=== PATIENT | female | born 1980 | race American Indian/Alaskan Native ===

== ENCOUNTER 2022-04-11 06:54 | Day surgery (SDC) | payer BC ==
[2022-04-08 12:04] LABS: Hematocrit 40.6 % (30.3-42.9); Mean Corpuscular HGB Conc 35 % (30-34); Mean Corpuscular Volume 92 fl (79-97); Platelet Count 239 K/mm3 (140-440); Red Blood Count 4.41 M/mm3 (3.65-5.03); Red Cell Distribution Width 13.2 % (13.2-15.2)
--- NOTE | 2022-04-08 17:14 | History and Physical Report ---
History of Present Illness Date of examination: 04/08/22 History of present illness: Patient has been reassessed/reevaluated. H&P has been reviewed. No interval changes. This is a 41 years old female who presents with menstrual disorder. She complains of heavy bleeding, clotting and fatigue. Menstrual flow lasts 5 days and 7 days. The patient also presents with menstrual disorder. .Patient presently has Mirena in place for treatment. Mirena expires this month. Patient's symptoms when present disrupts her normal daily activities Patient desires definitive treatment Vital Signs: Patient Profile: 41 Years Old Female LMP: 03/14/2022 Height: 63 inches (160.02 cm) Weight: 149 pounds BMI: 26.39 Temp: 97.3 degrees F BP sittin / 70 (right arm) Menstrual History: LMP (date): 03/14/2022 Current Method of Contraception: IUD Date of Last Pap Smear: 02/25/2022 Past History : 2 Term Births: 0 Premature Births: 0 Living Children: 1 Para: 1 Mult. Births: 0 Prev : 0 Prev. attempt? 0 Aborta: 1 Elect. Ab: 0 Spont. Ab: 1 Ectopics: 0 # 1 Delivery date: 05/06/2010 Weeks Gestation: 40.4 Delivery type: Anesthesia type: none Delivery location: [place] [facility] Sex: Female weight: 6-13 Name: Earnest Current Allergies (reviewed today): No known allergies Past Medical History: Anemia Past Surgical History: negative Family History Summary: General Comments - FH: Family History of CVA or Stroke Family History of Hypertension Social History: Patient is single Works for [employer] Smoking History: Patient has never smoked. 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 of genital herpes: yes Hx of STD: HSV Review of Systems General Complains of fatigue. Denies fever, chills, sweats, anorexia, weakness, malaise, weight loss and sleep disorder. Complains of menorrhagia. Denies vaginal discharge, incontinence, dysuria, hematuria, urinary frequency, amenorrhea, abnormal vaginal bleeding, pelvic pain, genital sores, decreased libido, painful periods, painful sex, urinary urgency, hot flashes, vaginal dryness, vaginal itching and vaginal odor. CV Denies chest pains, palpitations, syncope, dyspnea on exertion, orthopnea, PND and peripheral edema. Resp Denies cough, dyspnea at rest, excessive sputum, hemoptysis, wheezing and pleurisy. GI Denies nausea, vomiting, diarrhea, constipation, change in bowel habits, abdominal pain, melena, hematochezia, jaundice, gas/bloating, indigestion/heartburn, dysphagia and odynophagia. Breast Denies left breast lump, right breast lump, nipple discharge, bloody discharge from nipple, breast pain, abnormal mammogram and breast enlargement. Psych Denies depression, anxiety, irritability and mood swings. Past History Past Medical History: other (See HPI) Past Surgical History: Other (See HPI) Social history: full code, other (See HPI) Family history: other (See HPI) Medications and Allergies Allergies Allergy/AdvReac Type Severity Reaction Status Date / Time No Known Allergies Allergy Unverified 04/07/22 18:25 Home Medications Medication Instructions Recorded Confirmed Last Taken Type Iron [Iron 18 MG TAB] 18 mg PO QDAY 04/07/22 04/07/22 Unknown History Multivitamin [Multiple Vitamins] 1 each PO DAILY 04/07/22 04/07/22 Unknown History Review of Systems Constitutional: other (See HPI) Exam - Physical Exam Narrative exam: HEENT: normocephalic, no lesions or deformities Skin no ulcers, xanthomas Chest: respiratory effort normal, clear to auscultation CV: regular, normal S1-S2, no murmur, no rub, no gallop Abdomen: soft, non-tender, no masses, bowel sounds normal increased hair growth Neuro: no gross anomalities Extremities: no clubbing, cyanosis, or edema 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 No evidence of cystocele or rectocele. Cervix: No lesions; no cervical motion tenderness short IUD string seen Uterus: enlarged uterus 8 - 10 weeks size Adnexae: no masses or tenderness Rectovaginal: No lesions seen - Constitutional Vitals: Temp Pulse Resp BP Pulse Ox 98.2 F 72 16 110/71 100 04/08/22 11:40 04/08/22 11:40 04/08/22 11:40 04/08/22 11:40 04/08/22 11:40 Results - Labs CBC & Chem 7: 04/08/22 06:00 Labs: Abnormal lab results 04/08/22 Range/Units 06:00 MCHC 35 H (30-34) % Assessment and Plan - Patient Problems (1) Menorrhagia Current Visit: No Status: Acute Qualifiers: Menorrhagia type: with regular cycle Qualified Code(s): N92.0 - Excessive and frequent menstruation with regular cycle Plan to address problem: Patient's symptoms when present disrupts her normal daily activities Patient desires definitive treatment Conservative therapies have failed. Patient desires definitive treatment Patient desires least invasive procedure Patient desires endometrial ablation. Discussed risks and benefits of procedure. Informed endometrial ablation does not treat dymenorrhea or myomas. Patient does not desire future fertility Discussed risk of surgery including infection, bleeding and risk of perforating her uterus. Discuused postoperative symptom of vaginal duscharge and uterine cramping. Questions answered. Patient understands and desires to proceed
[2022-04-11] MEDS ORDERED: LACTATED RINGERS 1,000 ML ONE (07:18)
--- NOTE | 2022-04-11 08:08 | Anesthesia Day of Surgery ---
Anesthesia Day of Surgery - Day of Surgery Patient Examined: Yes Patient H&P Reviewed: Yes Patient is NPO: Yes
--- NOTE | 2022-04-11 08:09 | Anesthesia Consultation ---
Anesthesia Consult and Med Hx Date of service: 04/11/22 - Airway Anesthetic Teeth Evaluation: Good, Crowns ROM Head & Neck: Adequate Mental/Hyoid Distance: Adequate Mallampati Class: Class II Intubation Access Assessment: Good - Pre-Operative Health Status ASA Pre-Surgery Classification: ASA1 Proposed Anesthetic Plan: General - Pulmonary Hx Smoking: No Hx Sleep Apnea: No - Central Nervous System Hx Psychiatric Problems: No - Gastrointestinal Hx Gastroesophageal Reflux Disease: No - Hematic Hx Anemia: Yes Hx Sickle Cell Disease: No - Other Systems Hx Alcohol Use: Yes (Occas) Hx Cancer: No Hx Obesity: No
[2022-04-11] MEDS ORDERED: HYDROmorphone 0.5 MG/0.5 ML INJ IV PRN ×2 (08:30)
[2022-04-11] MEDS ORDERED: ONDANSETRON 4 MG/2 ML INJ IV PRN (08:30)
[2022-04-11] MEDS ORDERED: LACTATED RINGERS 1,000 ML IV SCH (09:00)
[2022-04-11] MEDS ORDERED: MIDAZOLAM 2 MG/2 ML INJ IV NR (09:00)
[2022-04-11] MEDS ORDERED: fentaNYL 100 MCG/2 ML INJ ONE (09:19)
[2022-04-11] MEDS ORDERED: propofoL 200 MG/20 ML VIAL IV ONE (09:20)
[2022-04-11] MEDS ORDERED: LIDOCAINE MPF (2%) 20 MG/1 ML VIAL 5 ML ONE (09:22)
[2022-04-11] MEDS ORDERED: ONDANSETRON 4 MG/2 ML INJ ONE (09:24)
[2022-04-11] MEDS ORDERED: KETOROLAC 30 MG/1 ML INJ ONE (09:24)
[2022-04-11] MEDS ORDERED: dexAMETHasone 20 MG/5 ML VIAL ONE (09:24)
[2022-04-11] MEDS ORDERED: SODIUM CHLORIDE 0.9% IRRIG SOLN 3000 ML IR ONE (10:28)
--- NOTE | 2022-04-11 10:42 | Operative Report ---
Operative Report Operative Report: Date of procedure: April 11, 2022 Pre-operative diagnosis: Menorrhagia Post-operative diagnosis: Same Procedure name(s): NovaSure endometrial ablation with hysteroscopy with removal of IUD Surgeon: Jeffrey Birch MD Showroom Sales Assistant: None Anesthesia: General EBL: Minimal Complications: None Findings: Patient with thickened endometrium both tubal ostia were clearly seen. Mirena IUD with its string wrap around the base embedded in the endometrium. Specimen(s): Mirena IUD was discarded Procedure: Patient was brought to operating room. Where general anesthesia was induced on difficulty. She was placed in the dorsal lithotomy position. Prepped and draped in usual sterile manner. Urinary bladder was emptied with a red rubber catheter. Speculum was placed in the vagina. The cervical length and uterine cavity was then assessed with a sound. Cervical length was 3.5 cm the total uterine cavity was 10 cm. The hysteroscope was then placed through the cervical os. With the findings as noted above. The string of the IUD was grasped with a hysteroscopic graspers and pulled through her cervical os without difficulty. The NovaSure was then placed through the cervical os the uterine width was then measured at the 4.6 cm. After passing the testing for cavity integrity, and NovaSure ablation was then started. The power setting was at 164 W and the procedure lasted 42 seconds. The NovaSure applicator was then removed. There was large amount of tissue on the NovaSure. Post procedure hysteroscopy showed cavity ablation. Our instruments are removed. The patient tolerated the procedure well and was awakened in the operating room. Accompanied to recovery in good condition.
[2022-04-11] MEDS ORDERED: oxyCODONE /ACETAMINOPHEN 5-325MG TAB PO PRN (10:43)
[2022-04-11] MEDS ORDERED: ACETAMINOPHEN 325 MG TAB PO PRN (10:43)
--- NOTE | 2022-04-11 10:46 | Short Stay Summary ---
Short Stay Documentation Date of service: 04/11/22 - History Principal diagnosis: Menorrhalgia H&P: dictated Past Medical History: other (See HPI) Past Surgical History: Other (See HPI) Social history: full code, other (See HPI) - Allergies and Medications Current Medications: Allergies No Known Allergies Allergy (Unverified 04/07/22 18:25) Home Medications Medication Instructions Recorded Confirmed Last Taken Type Iron [Iron 18 MG TAB] 18 mg PO QDAY 04/07/22 04/11/22 04/07/22 History Multivitamin [Multiple Vitamins] 1 each PO DAILY 04/07/22 04/11/22 04/07/22 History Active Medications Hydromorphone HCl (Hydromorphone 0.5 Mg/0.5 Ml Inj) 0.25 mg IV Q10MIN PRN PRN Reason: Pain, Moderate (4-6) Stop: 04/11/22 18:00 Hydromorphone HCl (Hydromorphone 0.5 Mg/0.5 Ml Inj) 0.5 mg IV Q10MIN PRN PRN Reason: Pain , Severe (7-10) Stop: 04/11/22 18:00 Lactated Ringer's (Lactated Ringers) 1,000 mls @ 125 mls/hr IV DIRECT FAUSTO Midazolam HCl (Midazolam 2 Mg/2 Ml Inj) 2 mg IV PREOP NR Stop: 04/11/22 23:59 Ondansetron HCl (Ondansetron 4 Mg/2 Ml Inj) 4 mg IV ONCE PRN PRN Reason: Nausea And Vomiting Stop: 04/11/22 17:00 - Physical exam General appearance: no acute distress HEENT: Atraumatic Lungs: Normal air movement Breasts: deferred Heart: Regular rate Gastrointestinal: normal Female Genitourinary: normal Rectal Exam: deferred Extremities: no ischemia - Brief post op/procedure progress note Date of procedure: 04/11/22 (See dictated operative note for details) Condition: stable - Hospital course Hospital course: Patient was admitted underwent the above him procedure without any complications. Patient will be discharged with follow-up in office in 1-2 weeks for postop check. - Disposition Condition at discharge: Good Disposition: 01 HOME / SELF CARE / HOMELESS - Discharge Diagnoses (1) Menorrhagia Status: Acute Qualifiers: Menorrhagia type: with regular cycle Qualified Code(s): N92.0 - Excessive and frequent menstruation with regular cycle Short Stay Discharge Plan Activity: advance as tolerated Diet: regular Additional Instructions: Patient to call office for any fever, chills, nausea, vomiting, heavy bleeding or pain not controlled by pain medication. Follow up with: RUBA LINCOLN NP [Primary Care Provider] - 7 Days Prescriptions: Ibuprofen [Motrin] 800 mg PO TID PRN #30 tablet PRN Reason: Pain DOXYCYCLINE Hyclate [Vibramycin CAP] 100 mg PO Q12HR #14 capsule
[2022-04-11 11:36] VITALS: BP 121/70
--- NOTE | 2022-04-11 18:01 | Post Anesthesia Evaluation ---
- Post Anesthesia Evaluation Patient Participated: Yes Airway Patent: Yes Stable Respiratory Function: Yes Nausea/Vomiting: No Temp > 96.8F: Yes Pain Manageable: Yes Adequeate Hydration: Yes Anesthesia Complications: No Block Receding Appropriately: Not Applicable Patient on Ventilator: No
== END 2022-04-11 11:45 | disposition home or self-care (01) ==
LOC: OR 06:54
PROVIDERS: ATTEND Obstetrics & Gynecology
DX: N92.0 Excessive and frequent menstruation with regular cycle (principal); D50.9 Iron deficiency anemia, unspecified; G43.909 Migraine, unspecified, not intractable, without status migrainosus; Z20.822 Contact with and (suspected) exposure to COVID-19; Z79.899 Other long term (current) drug therapy; Z72.89 Other problems related to lifestyle; Z98.890 Other specified postprocedural states
CPT/HCPCS: 36415; 58562; 58563; 81025; 85027; J1100; J1885; J2250; J2405; J2704; J3010; J7120; U0003